=== PATIENT | female | born 1970 | race Caucasian/White ===

== ENCOUNTER 2018-11-23 11:33 | Emergency (ER) | payer BC ==
--- NOTE | 2018-11-23 11:58 | EDPHY ---
H & P Time Seen by Provider: 11/23/18 11:40 HPI/ROS: CHIEF COMPLAINT: Diarrhea and weakness HISTORY OF PRESENT ILLNESS: Patient is 48-year-old female brought here by her for evaluation of weakness and 3 days of watery diarrhea. According to the patient she was diagnosed with irritable bowel approximately 3 months ago. She was seen multiple times for abdominal pain and diarrhea and had multiple CT scans back in [place] which all revealed no acute findings. Ultimately she was diagnosed with irritable bowel though she did not have colonoscopy. Does deny any history of Crohn's or ulcerative colitis and has never seen any black stools or bloody diarrhea. She has not had a fever. Her primary care doctor in [place] started her on Linzess and her stomach"gurgling"has resolved entered diarrhea symptoms have improved. She has had watery diarrhea for the last 3 days and feels weak and slightly lightheaded this morning. She is not nauseous is not throwing up. Additionally she reports bilateral breast"achy" sensation for the last 3 months. She had a normal mammogram done around 3 months ago. She has no history of breast cancer. She and her moved here from [place] few months ago. She does report that all of her symptoms started around 6 months ago after 1 of their children . She was also started on Xanax by her primary care doctor in [place] which is helped with her anxiety. REVIEW OF SYSTEMS: Constitutional: No fever, no chills. Eyes: No discharge. ENT: No sore throat. Cardiovascular: No chest pain, no palpitations. Respiratory: No cough, no shortness of breath. Gastrointestinal: No abdominal pain, no vomiting. Genitourinary: No hematuria. Musculoskeletal: No back pain. Skin: No rashes. Neurological: No headache. Smoking Status: Never smoked Physical Exam: General Appearance: Alert and no distress. ENT: normal dentition. No tonsillar exudate or swelling. Eyes: Pupils equal and round no injection. Respiratory: Chest is nontender, lungs are clear to auscultation. Cardiac: regular rate and rhythm. No lower extremity edema Gastrointestinal: Abdomen is soft and with mild epigastric tenderness, no masses, bowel sounds normal. Musculoskeletal: Neck is supple and nontender. Extremities have full range of motion and are nontender without deformity Skin: No rashes or lesions. Neuro: Cranial nerves grossly intact. Ambulatory. Constitutional: Initial Vital Signs Temperature (C) 36.7 C 11/23/18 11:35 Heart Rate 112 H 11/23/18 11:35 Respiratory Rate 18 11/23/18 11:35 Blood Pressure 165/105 H 11/23/18 11:35 O2 Sat (%) 97 11/23/18 11:35 O2 Delivery Mode Room Air Allergies/Adverse Reactions: No Known Allergies Allergy (Unverified 11/23/18 11:38) Home Medications: Medication Instructions Recorded ALPRAZolam [Xanax 1 MG (*)] 1 mg PO 11/23/18 Linaclotide [Linzess] 72 mcg PO 11/23/18 Medical Decision Making - Diagnostics Imaging Results: Imaging Impressions Chest X-Ray 11/23/18 11:57 IMPRESSION: No evidence for acute cardiopulmonary abnormality. ED Course/Re-evaluation: 48-year-old female here with intermittent diarrhea for over 6 months and a prior diagnosis of irritable bowel syndrome. On arrival she is afebrile not tachycardic alert and oriented. She has no abdominal tenderness on exam. Labs unremarkable. We discussed appropriate follow-up including primary care and gastroenterology to discuss doing a colonoscopy. Patient is agreeable with this plan and feels significantly improved after IV fluids. EKG shows normal sinus rhythm. Chest x-ray is unremarkable. Differential Diagnosis: Dehydration, acute renal failure, electrolyte disturbance, acute anemia, cardiac arrhythmia, depression, inflammatory bowel - Data Points Laboratory Results: Laboratory Results 11/23/18 11:51 11/23/18 11:51 11/23/18 11/23/18 11:51 11:51 WBC 6.29 10^3/uL 10^3/uL (3.80-9.50) RBC 5.18 10^6/uL 10^6/uL (4.18-5.33) Hgb 15.5 g/dL g/dL (12.6-16.3) Hct 45.6 % % (38.0-47.0) MCV 88.0 fL fL (81.5-99.8) MCH 29.9 pg pg (27.9-34.1) MCHC 34.0 g/dL g/dL (32.4-36.7) RDW 13.7 % % (11.5-15.2) Plt Count 279 10^3/uL 10^3/uL (150-400) MPV 10.3 fL fL (8.7-11.7) Neut % (Auto) 68.9 % % (39.3-74.2) Lymph % (Auto) 21.0 % % (15.0-45.0) [place] % (Auto) 8.7 % % (4.5-13.0) Eos % (Auto) 0.8 % % (0.6-7.6) Baso % (Auto) 0.3 % % (0.3-1.7) Nucleat RBC Rel Count 0.0 % % (0.0-0.2) Absolute Neuts (auto) 4.33 10^3/uL 10^3/uL (1.70-6.50) Absolute Lymphs (auto) 1.32 10^3/uL 10^3/uL (1.00-3.00) Absolute Monos (auto) 0.55 10^3/uL 10^3/uL (0.30-0.80) Absolute Eos (auto) 0.05 10^3/uL 10^3/uL (0.03-0.40) Absolute Basos (auto) 0.02 10^3/uL 10^3/uL (0.02-0.10) Absolute Nucleated RBC 0.00 10^3/uL 10^3/uL (0-0.01) Immature Gran % 0.3 % % (0.0-1.1) Immature Gran # 0.02 10^3/uL 10^3/uL (0.00-0.10) Sodium 138 mEq/L mEq/L (135-145) Potassium 3.8 mEq/L mEq/L (3.5-5.2) Chloride 109 mEq/L mEq/L (97-110) Carbon Dioxide 22 mEq/l mEq/l (22-31) Anion Gap 7 mEq/L mEq/L (6-14) BUN 13 mg/dL mg/dL (7-23) Creatinine 0.7 mg/dL mg/dL (0.6-1.0) Estimated GFR > 60 Glucose 106 mg/dL H mg/dL (70-100) Calcium 9.3 mg/dL mg/dL (8.5-10.4) Total Bilirubin 1.0 mg/dL mg/dL (0.1-1.4) AST 19 IU/L IU/L (14-46) ALT 24 IU/L IU/L (9-52) Alkaline Phosphatase 65 IU/L IU/L (38-126) Total Protein 7.1 g/dL g/dL (6.3-8.2) Albumin 4.5 g/dL g/dL (3.5-5.0) Departure - Departure Disposition: Home, Routine, Self-Care Clinical Impression: Chronic diarrhea, Fatigue, Anxiety Condition: Good Instructions: Irritable Bowel Syndrome (ED) Additional Instructions: Please follow up with both gastroenterology and the primary care physician in the next week for further treatment and evaluation. Continue all medications as prescribed. Referrals: NONE *PRIMARY CARE P,. [Primary Care Provider] - As per Instructions Yumiko Calvert DO [Doctor of Osteopathy] - As per Instructions Mariusz Myers MD [Medical Doctor] - As per Instructions
[2018-11-23 12:03] LABS: PLATELET COUNT 279 10^3/uL (150-400)
--- NOTE | 2018-11-23 12:34 | CPEKG ---
Test Reason : OPEN Blood Pressure : / mmHG Vent. Rate : 087 BPM Atrial Rate : 087 BPM P-R Int : 172 ms QRS Dur : 076 ms QT Int : 399 ms P-R-T Axes : 065 046 028 degrees QTc Int : 480 ms Sinus rhythm Left atrial enlargement Confirmed by Shmuel Hatch ([id number]) on 11/23/2018 12:34:22 PM Referred By: Confirmed By:Shmuel Hatch
[2018-11-23 13:30] VITALS: BP 131/89
== END 2018-11-23 13:31 | disposition home or self-care (01) ==
DX: R19.7 Diarrhea, unspecified (principal); R53.83 Other fatigue; F41.9 Anxiety disorder, unspecified; K58.9 Irritable bowel syndrome, unspecified

== ENCOUNTER → 2018-12-01 | Outpatient (CLI) | payer BC ==
[~2018-12-01] MED LIST: GADOBUTROL 10 ML VIAL IVP ONE
== END ==
LOC: FIMAGING 08:44
PROVIDERS: ATTEND Obstetrics & Gynecology
DX: R92.2 Inconclusive mammogram (principal); Z98.82 Breast implant status
CPT/HCPCS: A9585; C8908